=== PATIENT | female | born 2000 | race American Indian/Alaskan Native ===

== ENCOUNTER 2021-04-30 18:30 | Outpatient (CLI) | payer MEDICAID ==
[2021-04-30 19:57] VITALS: BP 134/61
[2021-04-30] MEDS ORDERED: LACTATED RINGERS 1,000 ML IV ONE (21:30)
[2021-04-30 22:00] LABS: Bilirubin,Urine NEG (Negative); Blood,Urine NEG (Negative); Color,Urine Straw (Yellow); Protein,Urine <15 mg/dL mg/dL (Negative); Urobilinogen,Urine < 2.0 mg/dL (<2.0)
[2021-04-30 22:06] LABS: Amphetamine Screen,Urine Negative; Benzodiazepines Screen,Urine Negative; Cannabinoid Screen,Urine Negative; Cocaine Screen,Urine Negative; Methadone Screen,Urine Negative; Opiate Screen,Urine Negative
--- NOTE | 2021-04-30 23:58 | Ultrasound Report ---
ULTRASOUND OBSTETRIC LIMITED ULTRASOUND BIOPHYSICAL PROFILE INDICATION / CLINICAL INFORMATION: SANG, check placenta. Clinical Gestational Age (GA) in weeks, days: 38, 3 TECHNIQUE: Transabdominal. COMPARISON: None available. FINDINGS: BREATHING MOVEMENT = 2 GROSS BODY MOVEMENT = 2 TONE = 2 QUALITATIVE AMNIOTIC FLUID VOLUME = 2 TOTAL BIOPHYSICAL SCORE = 8/8 HEART RATE (beats per minute): 147 AMNIOTIC FLUID INDEX (cm) = 7.7 (normal = 7-24 cm) PRESENTATION: Cephalic. ADDITIONAL FINDINGS: No placental abruption. IMPRESSION: 1. Biophysical Score = 8/8 2. No acute abnormality. Signer Name: Max Brown MD Signed: 04/30/2021 11:54 PM Workstation Name: [id number]
== END 2021-04-30 23:26 | disposition home or self-care (01) ==
LOC: TRG 18:30 → APU 18:31 → TRG 23:26
PROVIDERS: ATTEND Obstetrics & Gynecology
DX: O26.893 Other specified pregnancy related conditions, third trimester (principal); R10.30 Lower abdominal pain, unspecified; Z3A.38 38 weeks gestation of pregnancy
CPT/HCPCS: 59025; 76815; 76819; 80307; 81001; 96360; 96361; J7120

== ENCOUNTER 2021-05-04 20:29 | Inpatient (IN) | payer MEDICAID ==
[2021-05-04] MEDS ORDERED: DINOPROSTONE 10 MG VAG SUPP VG ONE (23:23)
[2021-05-04] MEDS ORDERED: LOPERAMIDE 2 MG CAP PO PRN (23:26)
[2021-05-04] MEDS ORDERED: miSOPROStol 200 MCG TAB PR PRN (23:26)
[2021-05-04] MEDS ORDERED: OXYTOCIN 10 UNIT/1 ML INJ IM PRN (23:26)
[2021-05-04] MEDS ORDERED: METHYLERGONOVINE MALEATE 0.2 MG/ML VIAL IM PRN (23:26)
[2021-05-04] MEDS ORDERED: TERBUTALINE 1 MG/1 ML INJ SUB-Q PRN (23:26)
[2021-05-04] MEDS ORDERED: CARBOPROST TROMETHAMINE 250 MCG/1 ML INJ IM PRN (23:26)
[2021-05-04] MEDS ORDERED: MINERAL OIL 30 ML ORAL LIQD PO PRN (23:26)
[2021-05-04] MEDS ORDERED: ePHEDrine SULFATE 50 MG/1 ML INJ IV PRN (23:26)
[2021-05-04] MEDS ORDERED: ACETAMINOPHEN 325 MG TAB PO PRN (23:32)
[2021-05-04] MEDS ORDERED: fentaNYL 100 MCG/2 ML INJ IV PRN (23:32)
[2021-05-04] MEDS ORDERED: BUTORPHANOL 2 MG/1 ML INJ IV PRN ×2 (23:32)
[2021-05-04 23:39] LABS: Hematocrit 32.1 % (30.3-42.9); Hemoglobin 10.2 gm/dl (10.1-14.3); Mean Corpuscular HGB Conc 32 % (30-34); Platelet Count 294 K/mm3 (140-440); Red Blood Count 4.71 M/mm3 (3.65-5.03); Red Cell Distribution Width 18.3 % (13.2-15.2)
[2021-05-04 23:45] LABS: Mean Corpuscular Volume 68 fl (79-97)
[2021-05-04] MEDS ORDERED: OXYTOCIN DRIP 30 UNITS/500 ML BAG IV SCH ×2 (23:45)
--- NOTE | 2021-05-05 00:11 | History and Physical Report ---
History of Present Illness Date of examination: 05/04/21 Date of admission: 05/04/21 20:29 Chief complaint: pt reports for an IOL History of present illness: 20 y/o single AA presents at [facility] @ 39 wks for an IOL r/t gest htn and obesity. Pt initiated her pnc @ 8 2/7 wks [facility] and was co-managed by LACHELLE. She has a hx of gest htn, Nephropathy 24 urine 1215mg, anemia, GBS pos, obesity (318lbs), HSV II, alpha thalassemia carrier, an d uti with a neg SADAF. Surgical/ social hx is unremarkable. Family hx of DM, HTN, and Ca. Pt was admitted to L&D for an IOL. Past History Past Medical History: other (Gest HTN, obesity, anemia, HSV II, GBS pos, alpha thalassemia, Nephropathy, and UTI) Past Surgical History: no surgical history [employer] History: chlamydia Family/Genetic History: diabetes, hypertension, cancer Social history: single, full code - Obstetrical History Expected Date of Delivery: 05/11/21 Actual Gestation: 39 Week(s) 1 Day(s) : 3 Para: 2 Hx # Term Pregnancies: 2 Number of Pregnancies: 0 Spontaneous Abortions: 0 Induced : 0 Number of Living Children: 2 Medications and Allergies Allergies Allergy/AdvReac Type Severity Reaction Status Date / Time No Known Allergies Allergy Verified 05/04/21 22:28 Home Medications Medication Instructions Recorded Confirmed Last Taken Type Valacyclovir HCl [Valtrex] 1,000 mg PO DAILY 05/04/21 05/04/21 05/03/21 History Active Meds: Active Medications Acetaminophen (Acetaminophen 325 Mg Tab) 650 mg PO Q4H PRN PRN Reason: Pain, Mild (1-3) Butorphanol Tartrate (Butorphanol 2 Mg/1 Ml Inj) 1 mg IV Q2H PRN PRN Reason: Pain, Moderate(4-6) LABOR PAIN Butorphanol Tartrate (Butorphanol 2 Mg/1 Ml Inj) 2 mg IV Q2H PRN PRN Reason: Pain , Severe (7-10) Carboprost Tromethamine (Carboprost Tromethamine 250 Mcg/1 Ml Inj) 250 mcg IM ONCE PRN PRN Reason: Uterine Bleeding Dinoprostone (Dinoprostone 10 Mg Vag Supp) 10 mg VG ONCE ONE Stop: 05/04/21 23:33 Ephedrine Sulfate (Ephedrine Sulfate 50 Mg/1 Ml Inj) 10 mg IV Q2M PRN PRN Reason: Hypotension Fentanyl (Fentanyl 100 Mcg/2 Ml Inj) 100 mcg IV Q2H PRN PRN Reason: Pain,Severe (7-10) LABOR PAIN Oxytocin/Sodium Chloride (Pitocin/Ns 30 Unit/500ml) 30 units in 500 mls @ 2 mls/hr IV TITR RAVEN; Protocol Lactated Ringer's (Lactated Ringers) 1,000 mls @ 125 mls/hr IV DIRECT RAVEN Oxytocin/Sodium Chloride (Pitocin/Ns 30 Unit/500ml) 30 units in 500 mls @ 40 mls/hr IV TITR RAVEN; Protocol Ampicillin Sodium (Ampicillin/Ns 1 Gm/50 Ml) 1 gm in 50 mls @ 100 mls/hr IV Q4H RAVEN; Protocol Ampicillin Sodium (Ampicillin/Ns 2 Gm/100 Ml) 2 gm in 100 mls @ 100 mls/hr IV ONCE ONE; Protocol Stop: 05/05/21 00:31 Lidocaine (Lidocaine (2%) 20 Mg/1 Ml Vial 20 Ml Mdv) 20 ml INFILTRATI ONCE ONE Stop: 05/04/21 23:27 Loperamide HCl (Loperamide 2 Mg Cap) 2 mg PO ONCE PRN PRN Reason: give with Hemabate Methylergonovine Maleate (Methylergonovine Maleate 0.2 Mg/Ml Vial) 0.2 mg IM ONCE PRN PRN Reason: Uterine Bleeding Mineral Oil (Mineral Oil 30 Ml Oral Liqd) 30 ml PO QHS PRN PRN Reason: Constipation Miscellaneous Medication (Valacyclovir Hcl [Valtrex]) 1,000 mg PO DAILY [facility] Misoprostol (Misoprostol 200 Mcg Tab) 800 mcg HI ONCE PRN PRN Reason: Uterine Bleeding Oxytocin (Oxytocin 10 Unit/1 Ml Inj) 10 unit IM ONCE PRN PRN Reason: Uterine Bleeding Terbutaline Sulfate (Terbutaline 1 Mg/1 Ml Inj) 0.25 mg SUB-Q ONCE PRN PRN Reason: Hyperstimulation/Hypertonicity Review of Systems All systems: negative Eyes: deferred Ears, nose, mouth and throat: deferred Breasts: normal Rectal Exam: deferred - Vital Signs Vital signs: Vital Signs Temp Pulse Resp BP 99 F 92 H 18 134/60 05/04/21 22:05 05/04/21 22:05 05/04/21 22:05 05/04/21 22:05 Temp Pulse Resp BP Pulse Ox 99 F 92 H 18 134/60 05/04/21 22:05 05/04/21 22:05 05/04/21 22:05 05/04/21 22:05 - Physical Exam Breasts: Positive: normal Abdomen: Positive: normal appearance, soft, normal bowel sounds, other (gravid) Genitourinary (Female): Positive: normal external genitalia, normal perenium Vulva: both: normal Vagina: Positive: normal moisture Uterus: Positive: enlarged, normal contour, other (gravid) Adnexa: both: normal Anus/Rectum: Positive: normal perianal skin Extremities: Positive: normal - Obstetrical FHR: auscultation normal, category 1 Uterine Contraction Monitor Mode: External Cervical Dilatation: 1.5 Cervical Effacement Percentage: 50 station: -4 Uterine Contraction Frequency (min): irreg Uterine Contraction Pattern: Irregular Uterine Tone Measurement Phase: Resting Uterine Contraction Intensity: Mild Results Result Diagrams: 05/04/21 22:55 Abnormal lab results 05/04/21 Range/Units 22:55 MCV 68 L (79-97) fl MCH 22 L (28-32) pg RDW 18.3 H (13.2-15.2) % All other labs normal. Assessment and Plan A: IUP@ 39 wks with gest htn Nephropathy 24 urine protien 1215mg HSV II, Anemia, GBS, Obesity (318lbs) Alpha thalassemia carrier P: Admit to L&D for cervidil IOL Continuos monitoring PIH labs GBS protocal Pain med/Epidural prn Notify NICU Anticipate - Patient Problems (1) Supervision of normal IUP (intrauterine ) in multigravida Current Visit: Yes Status: Acute (2) Positive GBS test Current Visit: Yes Status: Acute (3) Gestational HTN Current Visit: Yes Status: Acute (4) HSV (herpes simplex virus) anogenital infection Current Visit: Yes Status: Acute (5) Obesity Current Visit: Yes Status: Acute (6) Anemia Current Visit: Yes Status: Acute (7) Nephropathy Current Visit: Yes Status: Acute
[2021-05-05 00:24] LABS: Alanine Aminotransferase 8 units/L (7-56)
[2021-05-05] MEDS ORDERED: LIDOCAINE (2%) 20 MG/1 ML VIAL 20 ML MDV INFILTRATI ONE (00:26)
[2021-05-05] MEDS ORDERED: AMPICILLIN/NS 2 GM/100 ML 2 GM/100 ML BAG IV ONE (00:32)
[2021-05-05] MEDS: LACTATED RINGERS 1,000 ML IV SCH ×2 (00:59→17:17)
[2021-05-05] MEDS ORDERED: DINOPROSTONE 10 MG VAG SUPP VG ONE (01:32)
[2021-05-05 02:41] LABS: Uric Acid 4.6 mg/dL (3.5-7.6)
[2021-05-05] MEDS: AMPICILLIN/NS 1 GM/50 ML 1 GM/50 ML BAG IV SCH ×2 (04:50→17:21)
--- NOTE | 2021-05-05 09:16 | Progress Note ---
Assessment and Plan start pit today. Subjective Date of service: 05/05/21 Principal diagnosis: 39 wks iup, obesity, gest hbp Interval history: pt admitted for induction of labor. cx is 2cms,50%,-4 station. expectant vag delivery today. Objective - Constitutional Vitals: Vital Signs - 12hr 05/04/21 05/05/21 05/05/21 22:05 02:00 03:03 Temperature 99 F 98.6 F Pulse Rate 92 H 74 Respiratory 18 16 Rate Blood Pressure 134/60 122/55 General appearance: Present: no acute distress, well-nourished - Genitourinary Female genitourinary: other (cx 2cms, 50%,-4. bow intact.) - Labs CBC & Chem 7: 05/04/21 22:55 05/04/21 23:03 Labs: Abnormal lab results 05/04/21 05/04/21 Range/Units 22:55 23:03 MCV 68 L (79-97) fl MCH 22 L (28-32) pg RDW 18.3 H (13.2-15.2) % Creatinine 0.5 L (0.6-1.2) mg/dL Lactate Dehydrogenase 190 H (91-180) units/L Medications & Allergies - Medications Allergies/Adverse Reactions: Allergies No Known Allergies Allergy (Verified 05/04/21 22:28) Home Medications: Home Medications Medication Instructions Recorded Confirmed Last Taken Type Valacyclovir HCl [Valtrex] 1,000 mg PO DAILY 05/04/21 05/04/21 05/03/21 History Active Medications: Generic Name Dose Route Start Last Admin Trade Name Mauriceq PRN Reason Stop Dose Admin Acetaminophen 650 mg 05/04/21 23:32 Acetaminophen 325 Mg Tab PO Q4H PRN Pain, Mild (1-3) Butorphanol Tartrate 1 mg 05/04/21 23:32 Butorphanol 2 Mg/1 Ml Inj IV Q2H PRN Pain, Moderate(4-6) LABOR PAIN Butorphanol Tartrate 2 mg 05/04/21 23:32 Butorphanol 2 Mg/1 Ml Inj IV Q2H PRN Pain , Severe (7-10) Carboprost Tromethamine 250 mcg 05/04/21 23:26 Carboprost Tromethamine 250 Mcg/1 Ml Inj IM ONCE PRN Uterine Bleeding Ephedrine Sulfate 10 mg 05/04/21 23:26 Ephedrine Sulfate 50 Mg/1 Ml Inj IV Q2M PRN Hypotension Fentanyl 100 mcg 05/04/21 23:32 Fentanyl 100 Mcg/2 Ml Inj IV Q2H PRN Pain,Severe (7-10) LABOR PAIN Oxytocin/Sodium Chloride 30 units in 500 mls @ 2 mls/hr 05/04/21 23:45 Pitocin/Ns 30 Unit/500ml IV TITR RAVEN Protocol Lactated Ringer's 1,000 mls @ 125 mls/hr 05/04/21 23:30 05/05/21 00:59 Lactated Ringers IV 125 mls/hr DIRECT RAVEN Administration Oxytocin/Sodium Chloride 30 units in 500 mls @ 40 mls/hr 05/04/21 23:45 Pitocin/Ns 30 Unit/500ml IV TITR RAVEN Protocol Ampicillin Sodium 1 gm in 50 mls @ 100 mls/hr 05/05/21 04:00 05/05/21 04:50 Ampicillin/Ns 1 Gm/50 Ml IV 100 mls/hr Q4H RAVEN Administration Protocol Loperamide HCl 2 mg 05/04/21 23:26 Loperamide 2 Mg Cap PO ONCE PRN give with Hemabate Methylergonovine Maleate 0.2 mg 05/04/21 23:26 Methylergonovine Maleate 0.2 Mg/Ml Vial IM ONCE PRN Uterine Bleeding Mineral Oil 30 ml 05/04/21 23:26 Mineral Oil 30 Ml Oral Liqd PO QHS PRN Constipation Misoprostol 800 mcg 05/04/21 23:26 Misoprostol 200 Mcg Tab [place] ONCE PRN Uterine Bleeding Oxytocin 10 unit 05/04/21 23:26 Oxytocin 10 Unit/1 Ml Inj IM ONCE PRN Uterine Bleeding Terbutaline Sulfate 0.25 mg 05/04/21 23:26 Terbutaline 1 Mg/1 Ml Inj SUB-Q ONCE PRN Hyperstimulation/Hypertonicity Valacyclovir HCl 1,000 mg 05/05/21 10:00 Valacyclovir 500 Mg Tab PO DAILY [facility]
[2021-05-05] MEDS ORDERED: valACYclovir 500 MG TAB PO SCH (10:00)
[2021-05-05] MEDS ORDERED: hydrALAZINE 20 MG/1 ML INJ IV PRN (19:13)
[2021-05-05] MEDS ORDERED: MAGNESIUM SULFATE 4 GM/100 ML BAG IV ONE (19:23)
[2021-05-05] MEDS ORDERED: MAGNESIUM SULFATE 40GM/1000ML 40 GM/1,000 ML BAG IV SCH (20:00)
--- NOTE | 2021-05-05 20:14 | Event Note ---
Date: 05/05/21 Patient is receiving Pitocin for IOL due to obesity and PIH. Several elevated BPs noted on chart review (several systolics in 150s and one BP 160/115). Patient has had proteinuria during . Magnesium sulfate ordered. Discussed POC with patient and patient refused magnesium sulfate. Orders for hydralazine prn put in. Category 1 FHR tracing. Urinalysis ordered.
[2021-05-06] MEDS: LACTATED RINGERS 1,000 ML IV SCH (01:34)
[2021-05-06] MEDS ORDERED: NALOXONE 2 MG/2 ML INJ IV PRN (06:40)
[2021-05-06] MEDS ORDERED: ePHEDrine SULFATE 50 MG/1 ML INJ IV PRN (06:40)
--- NOTE | 2021-05-06 06:40 | Anesthesia Consultation ---
Anesthesia Consult and Med Hx Date of service: 05/06/21 - Airway Anesthetic Teeth Evaluation: Good ROM Head & Neck: Adequate Mental/Hyoid Distance: Adequate Mallampati Class: Class II Intubation Access Assessment: Probably Good - Pulmonary Exam CTA: Yes - Cardiac Exam Cardiac Exam: RRR - Pre-Operative Health Status ASA Pre-Surgery Classification: ASA3 Proposed Anesthetic Plan: Epidural - Pulmonary Hx Asthma: No - Cardiovascular System Hx Hypertension: Yes - Central Nervous System Hx Seizures: No Hx Psychiatric Problems: No - Endocrine Hx Renal Disease: No Hx Hypothyroidism: No Hx Hyperthyroidism: No - Hematic Hx Anemia: Yes Hx Sickle Cell Disease: No - Other Systems Hx Alcohol Use: Yes Hx Obesity: Yes
[2021-05-06] MEDS ORDERED: fentaNYL-BUPIV 2 MCG/ML-0.125% 200 MCG/100 ML BAG EPIDURAL SCH (07:00)
--- NOTE | 2021-05-06 07:02 | Progress Note ---
Labor Epidural - Labor Epidural Start Time: 06:47 Stop Time: 06:54 Performed by:: ERIKA BOTELLO Procedure: Patient is requesting epidural for labor pain. H&P, and labs reviewed. Procedure explained, questions answered, consent obtained. Patient in sitting position with blood pressure cuff and pulse ox on and working. Timeout performed immediately before start of procedure. Sterile chlorahexadine 0.5% prep/drape. 5 mL 1% lidocaine skin wheal at L[3]-L[4]. 18-gauge [employer] epidural needle advanced to [id number] with saline at 10 cm. Epidural dexmedetomidine [30] mcg administered. Epidural catheter advanced to 15 cm, negative aspiration for blood and csf, negative test dose 3 ml 1.5% lidocaine with epinephrine. Sterile steri-strips and tegaderm applied, followed by tape reinforcement. Patient tolerated procedure well.
--- NOTE | 2021-05-06 08:44 | Progress Note ---
Assessment and Plan start pit today. continue pit. Subjective Date of service: 05/06/21 Principal diagnosis: 39 wks iup, obesity, gest hbp Interval history: pt admitted for induction of labor. cx is 2cms,50%,-4 station. expectant vag delivery today. Objective - Constitutional Vitals: Vital Signs - 12hr 05/05/21 05/05/21 05/06/21 22:12 23:11 00:00 Temperature 98.6 F Pulse Rate 80 82 Blood Pressure 122/56 129/58 O2 Sat by Pulse Oximetry 05/06/21 05/06/21 05/06/21 00:12 01:11 02:12 Temperature Pulse Rate 85 81 67 Blood Pressure 124/60 130/58 134/60 O2 Sat by Pulse Oximetry 05/06/21 05/06/21 05/06/21 03:11 04:00 04:12 Temperature 98.4 F Pulse Rate 67 64 Blood Pressure 118/57 125/58 O2 Sat by Pulse Oximetry 05/06/21 05/06/21 05/06/21 06:41 06:46 06:51 Temperature Pulse Rate 79 92 H 81 Blood Pressure O2 Sat by Pulse 100 100 100 Oximetry 05/06/21 05/06/21 05/06/21 06:56 06:57 07:01 Temperature Pulse Rate 66 87 98 H Blood Pressure 135/67 O2 Sat by Pulse 99 98 Oximetry 05/06/21 05/06/21 05/06/21 07:02 07:05 07:06 Temperature Pulse Rate 98 H 75 91 H Blood Pressure 133/60 130/60 O2 Sat by Pulse 99 Oximetry 05/06/21 05/06/21 05/06/21 07:08 07:11 07:14 Temperature Pulse Rate 93 H 76 93 H Blood Pressure 125/59 117/57 114/55 O2 Sat by Pulse 99 Oximetry 05/06/21 05/06/21 05/06/21 07:16 07:17 07:20 Temperature Pulse Rate 81 85 99 H Blood Pressure 114/54 104/51 O2 Sat by Pulse 96 Oximetry 05/06/21 05/06/21 05/06/21 07:21 07:23 07:26 Temperature Pulse Rate 85 81 78 Blood Pressure 116/56 108/53 O2 Sat by Pulse 98 98 Oximetry 05/06/21 05/06/21 05/06/21 07:29 07:31 07:32 Temperature Pulse Rate 92 H 93 H 99 H Blood Pressure 105/52 99/50 O2 Sat by Pulse 94 Oximetry 05/06/21 05/06/21 05/06/21 07:35 07:36 07:38 Temperature Pulse Rate 89 92 H 101 H Blood Pressure 107/54 98/51 O2 Sat by Pulse 98 Oximetry 05/06/21 05/06/21 05/06/21 07:40 07:41 07:43 Temperature Pulse Rate 90 95 H 87 Blood Pressure 101/54 102/54 O2 Sat by Pulse 98 Oximetry 05/06/21 05/06/21 05/06/21 07:46 07:47 07:49 Temperature Pulse Rate 90 92 H 82 Blood Pressure 100/54 105/52 O2 Sat by Pulse 95 94 Oximetry 05/06/21 05/06/21 05/06/21 07:51 07:52 07:55 Temperature Pulse Rate 92 H 85 78 Blood Pressure 106/52 106/52 O2 Sat by Pulse 97 94 Oximetry 05/06/21 05/06/21 05/06/21 07:56 07:59 08:01 Temperature Pulse Rate 84 97 H 105 H Blood Pressure 101/51 O2 Sat by Pulse 97 98 Oximetry 05/06/21 05/06/21 05/06/21 08:02 08:04 08:05 Temperature Pulse Rate 100 H 83 85 Blood Pressure 85/52 95/53 O2 Sat by Pulse 94 Oximetry 05/06/21 05/06/21 05/06/21 08:06 08:08 08:10 Temperature Pulse Rate 88 82 67 Blood Pressure 98/54 96/54 O2 Sat by Pulse 96 Oximetry 05/06/21 05/06/21 05/06/21 08:11 08:13 08:16 Temperature Pulse Rate 72 77 86 Blood Pressure 97/54 O2 Sat by Pulse 99 100 Oximetry 05/06/21 05/06/21 05/06/21 08:21 08:26 08:31 Temperature Pulse Rate 80 74 65 Blood Pressure O2 Sat by Pulse 100 100 100 Oximetry 05/06/21 05/06/21 05/06/21 08:33 08:35 08:36 Temperature Pulse Rate 78 71 73 Blood Pressure 121/56 109/52 O2 Sat by Pulse 100 Oximetry General appearance: Present: no acute distress, well-nourished - Genitourinary Female genitourinary: other (cx 2 cms,-4,50%) - Labs CBC & Chem 7: 05/04/21 22:55 05/04/21 23:03 Medications & Allergies - Medications Allergies/Adverse Reactions: Allergies No Known Allergies Allergy (Verified 05/04/21 22:28) Home Medications: Home Medications Medication Instructions Recorded Confirmed Last Taken Type Valacyclovir HCl [Valtrex] 1,000 mg PO DAILY 05/04/21 05/04/21 05/03/21 History Active Medications: Generic Name Dose Route Start Last Admin Trade Name Freq PRN Reason Stop Dose Admin Acetaminophen 650 mg 05/04/21 23:32 Acetaminophen 325 Mg Tab PO Q4H PRN Pain, Mild (1-3) Butorphanol Tartrate 1 mg 05/04/21 23:32 Butorphanol 2 Mg/1 Ml Inj IV Q2H PRN Pain, Moderate(4-6) LABOR PAIN Butorphanol Tartrate 2 mg 05/04/21 23:32 Butorphanol 2 Mg/1 Ml Inj IV Q2H PRN Pain , Severe (7-10) Carboprost Tromethamine 250 mcg 05/04/21 23:26 Carboprost Tromethamine 250 Mcg/1 Ml Inj IM ONCE PRN Uterine Bleeding Ephedrine Sulfate 10 mg 05/06/21 06:40 Ephedrine Sulfate 50 Mg/1 Ml Inj IV Q2M PRN Hypotension Fentanyl 100 mcg 05/04/21 23:32 Fentanyl 100 Mcg/2 Ml Inj IV Q2H PRN Pain,Severe (7-10) LABOR PAIN Hydralazine HCl 5 mg 05/05/21 19:13 Hydralazine 20 Mg/1 Ml Inj IV Q30MIN PRN Hypertension Oxytocin/Sodium Chloride 30 units in 500 mls @ 2 mls/hr 05/04/21 23:45 05/06/21 02:50 Pitocin/Ns 30 Unit/500ml IV 8 mls/hr TITR RAVEN 8 mls/hr Titration Protocol Lactated Ringer's 1,000 mls @ 125 mls/hr 05/04/21 23:30 05/06/21 01:34 Lactated Ringers IV 125 mls/hr DIRECT RAVEN Administration Oxytocin/Sodium Chloride 30 units in 500 mls @ 40 mls/hr 05/04/21 23:45 Pitocin/Ns 30 Unit/500ml IV TITR RAVEN Protocol Ampicillin Sodium 1 gm in 50 mls @ 100 mls/hr 05/05/21 04:00 05/05/21 17:21 Ampicillin/Ns 1 Gm/50 Ml IV 100 mls/hr Q4H RAVEN Administration Protocol Magnesium Sulfate 40 gm in 1,000 mls @ 50 mls/hr 05/05/21 20:00 Magnesium Sulfate 40gm/1000ml IV DIRECT RAVEN 2 GM/HR Fentanyl/Bupivacaine/Sodium Chlor 200 mcg in 100 mls @ 12 mls/hr 05/06/21 07:00 Fentanyl-Bupiv 2 Mcg/Ml-0.125% EPIDURAL TITR [facility] Protocol Loperamide HCl 2 mg 05/04/21 23:26 Loperamide 2 Mg Cap PO ONCE PRN give with Hemabate Methylergonovine Maleate 0.2 mg 05/04/21 23:26 Methylergonovine Maleate 0.2 Mg/Ml Vial IM ONCE PRN Uterine Bleeding Mineral Oil 30 ml 05/04/21 23:26 Mineral Oil 30 Ml Oral Liqd PO QHS PRN Constipation Misoprostol 800 mcg 05/04/21 23:26 Misoprostol 200 Mcg Tab [place] ONCE PRN Uterine Bleeding Naloxone HCl 0.2 mg 05/06/21 06:40 Naloxone 2 Mg/2 Ml Inj IV Q5M PRN Respiratory sedation Oxytocin 10 unit 05/04/21 23:26 Oxytocin 10 Unit/1 Ml Inj IM ONCE PRN Uterine Bleeding Terbutaline Sulfate 0.25 mg 05/04/21 23:26 Terbutaline 1 Mg/1 Ml Inj SUB-Q ONCE PRN Hyperstimulation/Hypertonicity Valacyclovir HCl 500 mg 05/05/21 22:00 Valacyclovir 500 Mg Tab PO BID [facility]
[2021-05-06] MEDS: valACYclovir 500 MG TAB PO SCH ×2 (10:41→22:23)
[2021-05-06] MEDS ORDERED: LIDOCAINE (2%) 20 MG/1 ML VIAL 20 ML MDV INFILTRATI ONE (13:58)
[2021-05-06] MEDS ORDERED: oxyCODONE /ACETAMINOPHEN 5-325MG TAB PO PRN (14:14)
[2021-05-06] MEDS ORDERED: PROMETHAZINE 25 MG TAB PO PRN (14:14)
[2021-05-06] MEDS ORDERED: MAGNESIUM HYDROXIDE (MOM) ORAL LIQD UDC PO PRN (14:14)
[2021-05-06] MEDS ORDERED: LANOLIN/ZINC/DIMETHICONE (LANSINOH) 7 GM TP PRN (14:14)
[2021-05-06] MEDS ORDERED: WITCH HAZEL/ GLYCERIN PAD TP PRN (14:14)
[2021-05-06] MEDS ORDERED: ONDANSETRON 4 MG/2 ML INJ IV PRN (14:14)
[2021-05-06] MEDS ORDERED: PROMETHAZINE 25 MG RECT SUPP PR PRN (14:14)
[2021-05-06] MEDS ORDERED: ACETAMINOPHEN 325 MG TAB PO PRN (14:14)
[2021-05-06] MEDS ORDERED: diphenhydrAMINE 25 MG CAP PO PRN (14:14)
--- NOTE | 2021-05-06 14:21 | Procedure Note ---
Date of procedure: 05/06/21 Pre-op diagnosis: obesity, hbp, 39 wk iup Post-op diagnosis: same Procedure: This is Dr. Ceballos dictating procedure note on patient. Preoperative diagnosis 39-week intrauterine obesity hypertension Postoperative diagnosis same Procedure was a normal spontaneous vaginal delivery and repair of tear only right labia. Liveborn female infant weight 6 pounds 9 ounces with Apgars 9 and 9. Estimated blood loss 200 cc. Complications none . Anesthesia epidural Procedure patient was on the delivery table after the vertex was delivered oropharynx with suction the bulb was doubly clamped and cut fetus passed off the table to the nurses in stable condition. There was a small right inner labial tear which was repaired with running 2-0 chromic after we have given the patient strict anesthesia locally with 1 Xylocaine plain. The rest of vagina mucosa was intact rectal mucosa was intact. Placenta was delivered spontaneously. Patient tolerated procedure well she was then returned recovery room in stable condition. Anesthesia: epidural Surgeon: WILLI CEBALLOS Estimated blood loss: other (200 ccs) Pathology: none Specimen disposition: discarded Condition: stable Disposition: floor
[2021-05-06 14:58] LABS: Bilirubin,Urine NEG (Negative); Blood,Urine NEG (Negative); Color,Urine Straw (Yellow); Mucus,Urine FEW /HPF; Protein,Urine <15 mg/dL mg/dL (Negative); Urobilinogen,Urine < 2.0 mg/dL (<2.0)
[2021-05-06] MEDS: IBUPROFEN 600 MG TAB PO SCH ×2 (16:10→22:23)
[2021-05-07] MEDS: IBUPROFEN 600 MG TAB PO SCH ×4 (03:59→22:36)
[2021-05-07 06:10] LABS: Hematocrit 28.4 % (30.3-42.9); Hemoglobin 9.1 gm/dl (10.1-14.3)
[2021-05-07] MEDS: valACYclovir 500 MG TAB PO SCH ×2 (10:22→22:37)
--- NOTE | 2021-05-07 10:34 | Progress Note ---
Assessment and Plan A: Postpartm day 1 S/P . Anemia. Chronic hypertension. Obesity. P: Supplement with iron. Continue to monitor BPs. Routine care. Subjective - Subjective Date of service: 05/07/21 Principal diagnosis: day 1 S/P Patient reports: appetite normal, voiding normally, pain well controlled, flatus, ambulating normally, no dizzy ambulation, no nauseated : doing well Objective - Vital Signs Latest vital signs: Vital Signs Temp Pulse Resp BP BP Pulse Ox Pulse Ox 05/07/21 08:10 99 05/07/21 07:27 98.5 F 83 20 118/60 99 05/07/21 01:34 98.0 F 85 20 91/31 100 05/06/21 20:56 98.2 F 82 20 116/65 100 05/06/21 20:00 98 05/06/21 18:34 97.2 F L 65 16 122/59 98 100 05/06/21 16:10 98.1 F 18 05/06/21 15:56 64 100 05/06/21 15:51 66 100 05/06/21 15:50 80 126/61 05/06/21 15:48 68 94 05/06/21 15:46 68 100 05/06/21 15:41 71 97 05/06/21 15:36 76 100 05/06/21 15:35 75 132/60 05/06/21 15:31 101 H 100 05/06/21 15:26 83 100 05/06/21 15:21 81 100 05/06/21 15:20 91 H 124/59 05/06/21 15:16 70 100 05/06/21 15:11 78 100 05/06/21 15:06 72 100 05/06/21 15:05 81 141/65 05/06/21 15:01 95 H 100 05/06/21 14:56 91 H 100 05/06/21 14:51 71 147/49 100 05/06/21 14:46 96 H 99 05/06/21 14:41 71 100 05/06/21 14:36 71 99 05/06/21 14:35 67 99/60 05/06/21 14:31 79 100 05/06/21 14:26 72 100 05/06/21 14:21 101 H 100 05/06/21 14:20 93 H 117/60 05/06/21 14:16 102 H 100 05/06/21 14:15 89 94 05/06/21 14:11 97 H 100 05/06/21 14:08 80 120/58 05/06/21 14:06 77 100 05/06/21 14:05 88 131/60 05/06/21 14:01 84 100 05/06/21 14:00 97.9 F 05/06/21 13:56 110 H 99 05/06/21 13:51 118 H 100 05/06/21 13:50 151 H 136/73 05/06/21 13:46 140 H 100 05/06/21 13:41 85 100 05/06/21 13:36 95 H 138/77 100 05/06/21 13:31 104 H 100 05/06/21 13:30 98.7 F 05/06/21 13:26 98 H 100 05/06/21 13:21 78 100 05/06/21 13:20 73 125/60 05/06/21 13:16 76 100 05/06/21 13:11 76 100 05/06/21 13:06 72 100 05/06/21 13:05 64 126/60 05/06/21 13:01 67 100 05/06/21 12:56 68 100 05/06/21 12:51 66 100 05/06/21 12:50 68 127/61 05/06/21 12:46 67 100 05/06/21 12:41 62 99 05/06/21 12:36 66 100 05/06/21 12:35 65 126/61 05/06/21 12:31 70 100 05/06/21 12:26 66 100 05/06/21 12:21 75 129/57 100 05/06/21 12:16 69 100 05/06/21 12:11 68 99 05/06/21 12:06 74 99 05/06/21 12:04 68 103/52 05/06/21 12:01 85 100 05/06/21 11:56 72 100 05/06/21 11:51 70 97/44 99 05/06/21 11:46 71 100 05/06/21 11:41 68 100 05/06/21 11:37 65 94/47 05/06/21 11:36 70 100 05/06/21 11:31 65 100 05/06/21 11:26 90 100 05/06/21 11:21 72 99 05/06/21 11:20 91 H 98/49 05/06/21 11:16 75 99 05/06/21 11:11 81 100 05/06/21 11:06 62 99 05/06/21 11:05 84 106/53 05/06/21 11:01 76 99 05/06/21 10:56 71 97 05/06/21 10:51 81 98 05/06/21 10:50 85 104/52 05/06/21 10:46 72 97 05/06/21 10:41 82 98 05/06/21 10:36 77 94 05/06/21 10:35 82 102/50 Intake and Output 05/06/21 05/07/21 05/07/21 23:59 07:59 15:59 Intake Total 240 480 Output Total 1600 Balance -1360 480 Intake: Oral 240 480 Output: Urine 1600 Self-Catheterization 1600 Other: Total, Intake Amount 240 240 Total, Output Amount 900 - Exam Cardiovascular: Present: Regular rate Lungs: Present: Clear to auscultation Abdomen: Present: normal appearance, soft. Absent: distention, tenderness, guarding, rigidity Uterus: Present: normal, firm, fundal height below umbilicus. Absent: bogginess, tenderness Extremities: Present: edema (bilteral pedal edema). Absent: tenderness - Labs Labs: Abnormal lab results 05/07/21 Range/Units 04:02 Hgb 9.1 L (10.1-14.3) gm/dl Hct 28.4 L (30.3-42.9) %
--- NOTE | 2021-05-07 10:43 | Post Anesthesia Evaluation ---
- Post Anesthesia Evaluation Patient Participated: Yes Airway Patent: Yes Stable Respiratory Function: Yes Nausea/Vomiting: No Temp > 96.8F: Yes Pain Manageable: Yes Adequeate Hydration: Yes Anesthesia Complications: No Block Receding Appropriately: Yes
[2021-05-07] MEDS: FERROUS SULFATE 325 MG TAB PO SCH ×2 (12:18→22:37)
[2021-05-07] MEDS: HYDROcodone/ACETAMINOPHEN 5-325 MG TAB PO PRN ×2 (12:56→18:20)
[2021-05-08] MEDS: HYDROcodone/ACETAMINOPHEN 5-325 MG TAB PO PRN ×2 (00:49→08:44)
[2021-05-08] MEDS: IBUPROFEN 600 MG TAB PO SCH ×2 (04:23→10:43)
[2021-05-08] MEDS: FERROUS SULFATE 325 MG TAB PO SCH (08:44)
[2021-05-08 09:03] VITALS: BP 101/44
--- NOTE | 2021-05-08 10:09 | Discharge Summary ---
Providers - Providers Date of Admission: 05/04/21 20:29 Date of discharge: 05/08/21 Attending physician: NISREEN KEANE Primary care physician: NISREEN KEANE Hospitalization Reason for admission: induction of labor Delivery: Episiotomy: none Laceration: 1st degree Incision: normal, intact Other procedures: none, other (asymptomatic anemia) complications: other Discharge diagnosis: IUP at term delivered [place] baby: female Hospital course: Pt was admitted to [facility] for an IOL r/t CHTN. She had a and was d/c'd home in stable cond. See h&p, delivery summary, and pp notes. Condition at discharge: Stable Disposition: DC-01 TO HOME OR SELFCARE - Discharge Diagnoses (1) Supervision of normal IUP (intrauterine ) in multigravida Status: Acute (2) Positive GBS test Status: Acute (3) Gestational HTN Status: Acute (4) HSV (herpes simplex virus) anogenital infection Status: Acute (5) Obesity Status: Acute (6) Anemia Status: Acute (7) Nephropathy Status: Acute Plan - Discharge Medications Prescriptions: Ferrous Sulfate [Feosol 325 MG tab] 325 mg PO BID #90 tablet Ibuprofen [Motrin 600 MG tab] 600 mg PO Q6H #30 tablet - Provider Discharge Summary Activity: routine, no sex for 6 weeks, no heavy lifting 4 weeks, no strenuous exercise Diet: routine Instructions: routine Additional instructions: [] Smoking cessation referral if applicable(refer to patient education folder for contact #) [] Refer to [facility]'s [facility] Booklet Call your doctor immediately for: * Fever > 100.5 * Heavy vaginal bleeding ( >1 pad per hour) * Severe persistent headache * Shortness of breath * Reddened, hot, painful area to leg or breast * Drainage or odor from incision. * Keep incision clean and dry at all times and follow doctor's instructions regarding bathing/showering - Follow up plan Follow up: NISREEN KEANE MD [Primary Care Provider] - 6 Weeks Forms: [facility] Discharge Summary, Discharge Signature Page
[2021-05-08] MEDS: valACYclovir 500 MG TAB PO SCH (10:43)
== END 2021-05-08 15:00 | disposition home or self-care (01) | DRG 774 ==
LOC: LD 20:29 → OB 05-06 17:59
PROVIDERS: ADMIT Obstetrics & Gynecology; ATTEND Obstetrics & Gynecology
PROC: 3E0R3BZ Introduction of Anesthetic Agent into Spinal Canal, Percutaneous Approach (ICD-10-PCS; principal; 2021-05-06)
PROC: 10E0XZZ Delivery of Products of Conception, External Approach (ICD-10-PCS; 2021-05-06)
PROC: 00HU33Z Insertion of Infusion Device into Spinal Canal, Percutaneous Approach (ICD-10-PCS; 2021-05-06)
PROC: 0UQMXZZ Repair Vulva, External Approach (ICD-10-PCS; 2021-05-06)
PROC: 3E033VJ Introduction of Other Hormone into Peripheral Vein, Percutaneous Approach (ICD-10-PCS; 2021-05-06)
DX: O99.214 Obesity complicating childbirth (principal); O98.52 Other viral diseases complicating childbirth; D64.9 Anemia, unspecified; O13.4 Gestational [pregnancy-induced] hypertension without significant proteinuria, complicating childbirth; Z20.822 Contact with and (suspected) exposure to COVID-19; O99.02 Anemia complicating childbirth; B00.9 Herpesviral infection, unspecified; O26.833 Pregnancy related renal disease, third trimester; N28.9 Disorder of kidney and ureter, unspecified; O99.824 Streptococcus B carrier state complicating childbirth; Z37.0 Single live birth; Z3A.39 39 weeks gestation of pregnancy; Z83.3 Family history of diabetes mellitus; Z82.49 Family history of ischemic heart disease and other diseases of the circulatory system; Z80.9 Family history of malignant neoplasm, unspecified
CPT/HCPCS: 36415; 59200; 81001; 82565; 83615; 83735; 84450; 84460; 84550; 85014; 85018; 85027; 86592; 86850; 86900; 86901; G0378; A6250; J0290; J2590; J7120; U0003